=== PATIENT | female | born 1935 | race Caucasian/White ===

== ENCOUNTER 2018-06-28 09:07 | Day surgery (SDC) | payer MEDICARE, BC ==
[~2018-06-28 09:07] MED LIST: Buffered Lidocaine 0.9% SYRIN* 5 ML/SYR SYRINGE INTRADERM ONE; Famotidine IV* 10 MG/ML 2 ML (20 mg) IV ONE; NS 0.9% 1000 ML* 1,000 ML IV SCH; Naloxone* 0.4 MG/ML 1 ML VIAL IV PRN; Ondansetron INJ* 2 MG/ML VIAL ONE; oxyCODONE/Acetamin 5/325 MG* TAB PO PRN
[2018-06-28] MEDS ORDERED: Buffered Lidocaine 0.9% SYRIN* 5 ML/SYR SYRINGE ONE (09:14)
[2018-06-28] MEDS ORDERED: Famotidine IV* 10 MG/ML 2 ML (20 mg) ONE (09:14)
[2018-06-28] MEDS ORDERED: Ondansetron ODT TAB* 4 MG ONE (09:14)
[2018-06-28] MEDS ORDERED: KETAMINE HCL* 50 MG/ML 10 ML VIAL ONE (09:51)
[2018-06-28] MEDS ORDERED: Midazolam* 1 MG/ML 5 ML VIAL (5 MG) ONE (09:51)
[2018-06-28] MEDS ORDERED: fentaNYL* 50 MCG/ML 2 ML VIAL (100 MCG VIAL) ONE (09:51)
[2018-06-28] MEDS ORDERED: Bupivacaine 0.25% SDV* 30 ML ONE (10:46)
[2018-06-28] MEDS ORDERED: Clindamycin 900 MG/D5W BAG(*) 900 MG/50 ML BAG IVPB ONE (11:45)
[2018-06-28] MEDS ORDERED: Lidocaine 2% PF * 5 ML VIAL ONE (12:17)
[2018-06-28] MEDS ORDERED: Propofol* 10 MG/ML 20 ML BTL IV PUSH ONE (12:17)
[2018-06-28] MEDS ORDERED: Phenylephrine IV* 40 MCG/ML 10 ML SYRINGE ONE (12:17)
[2018-06-28 13:26] VITALS: BP 119/67
--- NOTE | 2018-06-28 22:55 | OP ---
DATE OF OPERATION: 06/28/18 - [facility] DATE OF : 39 SURGEON: Garrick Owusu MD SCIENCE INTERPRETER: DOUGLAS Rogers. An blacksmith assistant was needed for the procedure to aid in retraction. ANESTHESIOLOGIST: Dr. Ny. ANESTHESIA: General. PRE-OP DIAGNOSIS: Right long finger mass. 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 OPERATIVE PROCEDURE: Right long finger flexor excision of mass/flexor tenosynovectomy. INDICATIONS: Scarlett is 82 years old. She has developed a large mass on the palmar aspect of the right long finger. It has been associated with quite a bit of discomfort and diminishing motion in the finger. We had talked about excising it. She wanted to proceed with surgery. She understands the risks that the flexor tendon sheath may be compromised and she would have permanent loss of motion in the finger. ESTIMATED BLOOD LOSS: 2 mL. COMPLICATIONS: None. FINDINGS: See above and below. DESCRIPTION OF PROCEDURE: Scarlett was seen in the preoperative holding area. The correct side, site, and procedure were identified. We came back to the operating room where the arm was prepped and draped in the usual fashion. A time-out was performed. I made a mid axial incision along the ulnar side of the right middle finger and brought the flap of full thickness off the flexor tendon sheath and also the mass. There was really no flexor tendon sheath after the A2 jamie down through the most distal part of the A4 jamie. 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 I went ahead and dissected the neurovascular bundle radially and the ulnar neurovascular bundle went with the flap. It took quite some time, but I was able to perform a full excision of the mass/flexor tenosynovectomy. The diseased tissue started underneath the A2 jamie and then was enveloping the entirety of the tendons of the A3 and proximal portion of the A4 jamie. There was some protruding out through the A5 jamie as well. Ultimately after everything was excised, only the A2 and A4 pulleys remained. I worked circumferentially around the tendons to excise everything. There was a good portion of the FTP tendon that had been eroded near the area of the PIP joint. I debrided back degenerative tendon until only good fibers remained and everything was as clean as possible. At this point, I could see no more diseased tissues, so we irrigated out the wounds. Skin was closed with 4-0 nylon suture. Wound was dressed with a soft dressing. Tourniquet was deflated. The finger pinked up immediately. Tourniquet had been at 250 mmHg throughout the case. She was taken to the recovery room in stable condition. [id number]/CPS #: [id number]
== END 2018-06-28 14:56 | disposition home or self-care (01) ==
LOC: OR 09:07
PROVIDERS: ATTEND Orthopaedic Surgery Hand Surgery
DX: M1A.9XX1 Chronic gout, unspecified, with tophus (tophi) (principal); E11.9 Type 2 diabetes mellitus without complications; Z79.4 Long term (current) use of insulin; I10 Essential (primary) hypertension; I48.91 Unspecified atrial fibrillation; Z95.2 Presence of prosthetic heart valve; Z95.0 Presence of cardiac pacemaker
CPT/HCPCS: 88304; A9270-GY; J2250; J2704; J3010